=== PATIENT | female | born 1945 | race Caucasian/White ===

== ENCOUNTER 2019-01-21 17:15 | Emergency (ER) | payer BC, MEDICARE ==
--- NOTE | 2019-01-21 17:55 | EDM.PDOC ---
<Mayur Nichols - Last Filed: 01/21/19 17:57> ED HPI GENERAL MEDICAL PROBLEM - General Chief Complaint: Upper Extremity Injury/Pain Stated Complaint: FELL BROKE ARM Time Seen by Provider: 01/21/19 17:45 Source of Information: Reports: Patient History Limitations: Reports: No Limitations - History of Present Illness INITIAL COMMENTS - FREE TEXT/NARRATIVE: 73-year-old female who earlier today fell on sidewalk onto her right arm. She has an abrasion on the right elbow, some elbow discomfort, and swelling and pain in the right wrist. No other injury. She can move her fingers, she has no rings on the right hand. No shoulder discomfort or shortness of breath. Onset: Today Duration: Hour(s): Location: Reports: Upper Extremity, Right (Fell within the last 2 hours) Associated Symptoms: Reports: No Other Symptoms - Related Data Allergies Allergy/AdvReac Type Severity Reaction Status Date / Time prednisone Allergy Depression Verified 01/21/19 17:42 Home Meds: Home Meds Amitriptyline [Elavil] 150 mg PO BEDTIME 01/21/19 [History] LORazepam [Ativan] 0.5 mg PO DAILY 01/21/19 [History] Past Medical History HEENT History: Reports: Impaired Vision [employer] History: Reports: Musculoskeletal History: Reports: Fracture Psychiatric History: Reports: Anxiety, Depression - Past Surgical History GI Surgical History: Reports: Colonoscopy Female Surgical History: Reports: Tubal Ligation Social & Family History - Tobacco Use Smoking Status *Q: Never Smoker - Recreational Drug Use Recreational Drug Use: No Review of Systems - Review of Systems Review Of Systems: See Below Constitutional: Denies: Fever Respiratory: Denies: Shortness of Breath Cardiovascular: Denies: Chest Pain GI/Abdominal: Denies: Abdominal Pain, Nausea, Vomiting Skin: Reports: Other (Abrasion on the right elbow, some bruising starting around the wrist) Neurological: Denies: Paresthesia ED EXAM, GENERAL - Physical Exam Exam: See Below Exam Limited By: No Limitations General Appearance: Alert, No Apparent Distress, Other (Looks uncomfortable but not distressed) Head: Atraumatic Neck: Supple, Non-Tender Respiratory/Chest: No Respiratory Distress Extremities: Other (Exam is otherwise limited to the upper extremities. Palpation of the shoulders is nontender. She has an abrasion over the extensor surface of the right elbow, with some tenderness over the radial head. Also increased pain with passive range of motion. She has palpation tenderness and mild deformity over the distal radius and ulna.) Course - Vital Signs Last Recorded V/S: Last Vital Signs Temp 36.6 C 01/21/19 17:39 Pulse 92 01/21/19 17:39 Resp 20 01/21/19 17:39 BP 174/90 H 01/21/19 17:39 Pulse Ox 97 01/21/19 17:39 - Orders/Labs/Meds Orders: Active Orders 24 hr Category Date Time Status Vaccines to be Administered [RC] PER UNIT ROUTINE Care 01/21/19 18:24 Active Elbow Min 3V Rt [CR] Stat Exams 01/21/19 17:52 Taken Wrist Comp Min 3V Rt [CR] Stat Exams 01/21/19 17:52 Taken Meds: Medications Discontinued Medications Generic Name Dose Route Start Last Admin Trade Name Freq PRN Reason Stop Dose Admin Diphtheria/Tetanus/Acell Pertussis 0.5 ml 01/21/19 18:24 01/21/19 18:29 Adacel IM 01/21/19 18:25 0.5 ml .ONCE ONE Administration Hydromorphone HCl 1 mg 01/21/19 18:20 01/21/19 18:28 Dilaudid IM 01/21/19 18:21 1 mg ONETIME ONE Administration - Re-Assessments/Exams Free Text/Narrative Re-Assessment/Exam: 01/21/19 17:55 An x-ray of the right wrist and right elbow were obtained. 01/21/19 17:57 Dr. Guillory to assume care pending x-rays. Departure - Departure Disposition: Home, Self-Care 01 Clinical Impression: Distal radius fracture, right Qualifiers: Encounter type: initial encounter Fracture type: closed Fracture morphology: unspecified fracture morphology Qualified Code(s): S52.501A - Unspecified fracture of the lower end of right radius, initial encounter for closed fracture - Discharge Information Instructions: Wrist Fracture Treated With Immobilization, [id number] Referrals: PCP,None [Primary Care Provider] - Forms: ED Department Discharge Additional Instructions: Keep hand elevated. Wear splint at all times. See orthopedics for definitive care early in the week. Take ibuprofen 400 mg every 6 hrs with food. Add acetaminophen up to 1000 mg every 6 hrs for added relief. Substitute [place] for acetaminophen if needed for added pain relief. Take your X-rays along to your orthopedic appt. - My Orders Last 24 Hours: My Active Orders 01/21/19 18:24 Vaccines to be Administered [RC] PER UNIT ROUTINE - Assessment/Plan Last 24 Hours: My Active Orders 01/21/19 18:24 Vaccines to be Administered [RC] PER UNIT ROUTINE <Noel Guillory G - Last Filed: 01/21/19 19:00> Course - Vital Signs Text/Narrative:: Sugar-Tong splint applied. Fitted with a sling. - Orders/Labs/Meds Meds: Medications Discontinued Medications Generic Name Dose Route Start Last Admin Trade Name Freq PRN Reason Stop Dose Admin Diphtheria/Tetanus/Acell Pertussis 0.5 ml 01/21/19 18:24 01/21/19 18:29 Adacel IM 01/21/19 18:25 0.5 ml .ONCE ONE Administration Hydromorphone HCl 1 mg 01/21/19 18:20 01/21/19 18:28 Dilaudid IM 01/21/19 18:21 1 mg ONETIME ONE Administration - Radiology Interpretation Free Text/Narrative:: Wrist [id number] and comminuted distal radius and ulnar styloid fx's. Departure - Departure Time of Disposition: 19:10 Condition: Fair - Discharge Information *PRESCRIPTION DRUG MONITORING PROGRAM REVIEWED*: No *COPY OF PRESCRIPTION DRUG MONITORING REPORT IN PATIENT MEETA: No - My Orders Last 24 Hours: My Active Orders 01/21/19 18:24 Vaccines to be Administered [RC] PER UNIT ROUTINE - Assessment/Plan Last 24 Hours: My Active Orders 01/21/19 18:24 Vaccines to be Administered [RC] PER UNIT ROUTINE
[2019-01-21] MEDS ORDERED: HYDROmorphone 1 MG/ML Syringe IM ONE (18:20)
[2019-01-21] MEDS ORDERED: Diphtheria,Pertussis(Acell),Tetanus Vaccine 0.5 ML SDV IM ONE (18:24)
--- NOTE | 2019-01-21 19:22 | CRLCR ---
HISTORY: Pain after fall COMPARISON: None available. FINDINGS: The right elbow is examined with AP, lateral, and oblique views. There is no sign of fracture, dislocation, or joint effusion. The soft tissues are normal in appearance without sign of radio-opaque foreign body. No significant degenerative disease is seen. IMPRESSION: Normal right elbow examination. Dictated by Jone Mann MD @ Jan 21 2019 7:19PM Signed by Dr. Jone Mann @ Jan 21 2019 7:22PM
--- NOTE | 2019-01-21 19:22 | CRLCR ---
HISTORY: Pain after fall COMPARISON: None available. FINDINGS: AP, lateral, and oblique views of the left wrist are obtained for a total of three views. There is a comminuted, impacted, transverse intra-articular fracture of the distal radius with approximately 30 degrees dorsal angulation of the distal fracture fragments. There is an acute transverse fracture of the base of the ulnar styloid with mild radial rotation of the distal fracture fragment. There is no sign of additional fracture or dislocation. The bones of the carpus are in anatomic alignment with the major distal radial fracture fragments. 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 The soft tissues are normal in appearance with no sign of foreign body. IMPRESSION: Acute, comminuted, impacted, transverse, mildly angulated intra-articular fracture of the distal radius. Acute, transverse, mildly rotated fracture of the base of the ulnar styloid. Mild degenerative change at the base of the thumb as described above. Dictated by Jone Mann MD @ Jan 21 2019 7:19PM Signed by Dr. Jone Mann @ Jan 21 2019 7:21PM
== END 2019-01-21 19:20 | disposition home or self-care (01) ==
LOC: JP.ED 17:15
DX: S52.571A Other intraarticular fracture of lower end of right radius, initial encounter for closed fracture (principal); S52.611A Displaced fracture of right ulna styloid process, initial encounter for closed fracture; S50.311A Abrasion of right elbow, initial encounter; Z23 Encounter for immunization; F41.9 Anxiety disorder, unspecified; Z88.8 Allergy status to other drugs, medicaments and biological substances; Z98.51 Tubal ligation status; W10.1XXA Fall (on)(from) sidewalk curb, initial encounter
CPT/HCPCS: 29125; 73080; 73110; 90471; 90715; 96372; 99283; J1170